=== PATIENT | male | born 1965 | race Caucasian/White ===

== ENCOUNTER 2018-05-06 06:47 | Day surgery (SDC) | payer BC ==
[2018-05-06] MEDS ORDERED: Lactated Ringers 1,000 ML IV SCH (07:15)
[2018-05-06] MEDS ORDERED: Propofol 200 MG/20 ML SDV ONE (07:21)
[2018-05-06] MEDS ORDERED: Midazolam 1 MG/ML 2 ML SDV ONE (07:21)
[2018-05-06] MEDS ORDERED: fentaNYL 100 MCG/2 ML SDV ONE (07:21)
[2018-05-06] MEDS ORDERED: Bupivacaine 0.5% 50 ML MDV ONE (07:35)
[2018-05-06] MEDS ORDERED: Clindamycin Phosphate 900 MG in Sodium Chloride 0.9% 100 ML IV ONE (08:30)
[2018-05-06] MEDS ORDERED: Ketorolac 60 MG/2 ML SDV ONE (08:32)
--- NOTE | 2018-05-06 09:40 | OR ---
DATE OF PROCEDURE: 05/06/2018 PREOPERATIVE DIAGNOSIS: Moderate carpal tunnel, right wrist. POSTOPERATIVE DIAGNOSIS: Moderate carpal tunnel, right wrist. PROCEDURE PERFORMED: Release of right transverse carpal ligament. BLOOD LOSS: Minimum. COMPLICATIONS: No complication. 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 He did well afterwards. He did develop some tingling and numbness sensation at the territory in the median nerve, which got worse with time and quite bothersome even with the brace and anti-inflammatories. 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 Since he had an EMG, which showed moderate carpal tunnel on the right side and had failed conservative treatment, it was decided to proceed with surgery. I discussed with the patient the possible risks, benefits, alternatives, and complications of surgery. The nature of the surgery was explained, all questions were answered, and I had informed consent. DESCRIPTION OF PROCEDURE: The patient was taken to the OR. I did my markings on the right wrist. He did receive antibiotics preoperatively. The WHEEL MOLDER proceeded with slight IV sedation. The patient was put on his back. A tourniquet was applied at the right upper extremity in proximity. Sterile prep and dressing were done in the usual manner on the right wrist. Time-out was taken to identify the correct surgical site and to make sure all instrumentation were present in the room. I did a local block of Marcaine 0.25% to subcutaneous tissue and down to the transverse carpal ligament of his right wrist. The arm was elevated and tourniquet was raised to 250 mmHg. An incision was done with the scalpel starting at the wrist crease and going ulnar to the thenar muscle belly about 3 cm. Dissection was carried down to the subcutaneous tissue down to the transverse carpal ligament. A slight opening was done proximally with Paolo scissors, making sure not to violate the deep structures. A groove adapter was passed underneath the transverse carpal ligament and a gradual release was done with the scalpel. The ligament was quite thick and very slight inflammation only of the nerve, which was intact. Once the release was done, the OR site was washed with saline. The skin was closed with nylon 3-0 simple sutures. A compressing dressing was applied. Tourniquet was released. Blood loss was minimal. There was no complication. The patient tolerated well the operation. He was sent to the recovery room in a good condition. Rohit Batres MD /[id number]
== END 2018-05-06 10:05 | disposition home or self-care (01) ==
LOC: JP.SDS 06:47
PROVIDERS: ATTEND Orthopaedic Surgery
DX: G56.01 Carpal tunnel syndrome, right upper limb (principal); D58.0 Hereditary spherocytosis; Q60.0 Renal agenesis, unilateral; M10.9 Gout, unspecified; Z90.81 Acquired absence of spleen; Z79.899 Other long term (current) drug therapy; Z88.0 Allergy status to penicillin
CPT/HCPCS: 64721; J1885; J2250; J2704; J3010; J3490; J7120

== ENCOUNTER 2019-10-08 21:46 | Emergency (ER) | payer BC ==
--- NOTE | 2019-10-08 22:37 | EDM.PDOCBH ---
ED HPI GENERAL MEDICAL PROBLEM - General Chief Complaint: Behavioral/Psych Stated Complaint: SUCIDIAL IDEATION Time Seen by Provider: 10/08/19 22:29 Source of Information: Reports: Patient, RN Notes Reviewed History Limitations: Reports: No Limitations - History of Present Illness INITIAL COMMENTS - FREE TEXT/NARRATIVE: 54-year-old gentleman presents emergency department a complaint of suicidal ideation he does admit to being depressed he states he does have a plan he believes he would hang himself. 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 " Musculoskeletal History: Reports: Gout Psychiatric History: Reports: Depression Hematologic History: Reports: Anemia, Other (See Below) Other Hematologic History: spherocytosis - blood disorder - Infectious Disease History Infectious Disease History: Reports: Chicken Pox - Past Surgical History GI Surgical History: Reports: Cholecystectomy, Other (See Below) Other GI Surgeries/Procedures: spleenectomy Musculoskeletal Surgical History: Reports: Carpal Tunnel, Other (See Below) Other Musculoskeletal Surgeries/Procedures:: right wrist surgery for gout Social & Family History - Tobacco Use Smoking Status *Q: Never Smoker - Caffeine Use Caffeine Use: Reports: Coffee, Soda - Recreational Drug Use Recreational Drug Use: No ED ROS GENERAL - Review of Systems Review Of Systems: See Below Constitutional: Reports: No Symptoms HEENT: Reports: No Symptoms Respiratory: Reports: No Symptoms Cardiovascular: Reports: No Symptoms GI/Abdominal: Reports: No Symptoms Neurological: Reports: No Symptoms Psychiatric: Reports: Depression, Suicidal Ideation. Denies: Hallucinations, Homicidal Ideation ED EXAM, BEHAVIORAL HEALTH - Physical Exam Exam: See Below Exam Limited By: No Limitations General Appearance: Alert, WD/WN, No Apparent Distress Respiratory/Chest: No Respiratory Distress, Lungs Clear, Normal Breath Sounds, No Accessory Muscle Use, Chest Non-Tender Cardiovascular: Regular Rate, Rhythm, No Murmur GI/Abdominal: Soft, Non-Tender Psychiatric: Alert, Normal Affect, Normal Mood, Suicidal Thoughts. No: Poor Eye Contact, Auditory Hallucinations, Visual Hallucinations, Grandiose Thoughts , Pressured Speech, Paranoid Thoughts, Threatening Behavior COURSE, BEHAVIORAL HEALTH COMP - Course Vital Signs: Last Vital Signs Temp 97.8 F 10/08/19 22:28 Pulse 114 H 10/08/19 22:28 Resp 14 10/08/19 22:28 BP 132/96 H 10/08/19 22:28 Pulse Ox 96 10/08/19 22:28 Orders, Labs, Meds: Active Orders 24 hr Category Date Time Status Suicide Precautions [OM.PC] Routine Oth 10/08/19 22:40 Ordered Laboratory Tests 10/08/19 10/08/19 10/08/19 Range/Units 22:44 22:44 22:44 WBC 15.5 H (4.5-11.0) K/uL RBC 5.45 (4.30-5.90) M/uL Hgb 17.1 H (12.0-15.0) g/dL Hct 50.4 (40.0-54.0) % MCV 93 (80-98) fL MCH 31 (27-31) pg MCHC 34 (32-36) % Plt Count 399 (150-400) K/uL Neut % (Auto) 79 H (36-66) % Lymph % (Auto) 8 L (24-44) % [place] % (Auto) 12 H (2-6) % Eos % (Auto) 0 L (2-4) % Baso % (Auto) 0 (0-1) % Sodium 143 (140-148) mmol/L Potassium 3.8 (3.6-5.2) mmol/L Chloride 103 (100-108) mmol/L Carbon Dioxide 29 (21-32) mmol/L Anion Gap 10.8 (5.0-14.0) mmol/L BUN 16 (7-18) mg/dL Creatinine 1.2 (0.8-1.3) mg/dL Est Cr Clr Drug Dosing 69.55 mL/min Estimated GFR (MDRD) > 60 (>60) Glucose 96 (74-106) mg/dL Calcium 8.9 (8.5-10.1) mg/dL Total Bilirubin 0.9 (0.2-1.0) mg/dL AST 17 (15-37) U/L ALT 27 (12-78) U/L Alkaline Phosphatase 139 H (46-116) U/L Total Protein 8.1 (6.4-8.2) g/dL Albumin 4.2 (3.4-5.0) g/dL Globulin 3.9 H (2.3-3.5) g/dL Albumin/Globulin Ratio 1.1 L (1.2-2.2) TSH, Ultra Sensitive (0.358-3.740) uIU/mL Urine Opiates Screen (NEGATIVE) Ur Oxycodone Screen (NEGATIVE) Urine Methadone Screen (NEGATIVE) Ur Propoxyphene Screen (NEGATIVE) Ur Barbiturates Screen (NEGATIVE) Ur Tricyclics Screen (NEGATIVE) Ur Phencyclidine Scrn (NEGATIVE) Ur Amphetamine Screen (NEGATIVE) U Methamphetamines Scrn (NEGATIVE) Urine MDMA Screen (NEGATIVE) U Benzodiazepines Scrn (NEGATIVE) U Cocaine Metab Screen (NEGATIVE) U Marijuana (THC) Screen (NEGATIVE) Ethyl Alcohol < 3 mg/dL 10/08/19 10/08/19 Range/Units 22:44 23:14 WBC (4.5-11.0) K/uL RBC (4.30-5.90) M/uL Hgb (12.0-15.0) g/dL Hct (40.0-54.0) % MCV (80-98) fL MCH (27-31) pg MCHC (32-36) % Plt Count (150-400) K/uL Neut % (Auto) (36-66) % Lymph % (Auto) (24-44) % [place] % (Auto) (2-6) % Eos % (Auto) (2-4) % Baso % (Auto) (0-1) % Sodium (140-148) mmol/L Potassium (3.6-5.2) mmol/L Chloride (100-108) mmol/L Carbon Dioxide (21-32) mmol/L Anion Gap (5.0-14.0) mmol/L BUN (7-18) mg/dL Creatinine (0.8-1.3) mg/dL Est Cr Clr Drug Dosing mL/min Estimated GFR (MDRD) (>60) Glucose (74-106) mg/dL Calcium (8.5-10.1) mg/dL Total Bilirubin (0.2-1.0) mg/dL AST (15-37) U/L ALT (12-78) U/L Alkaline Phosphatase (46-116) U/L Total Protein (6.4-8.2) g/dL Albumin (3.4-5.0) g/dL Globulin (2.3-3.5) g/dL Albumin/Globulin Ratio (1.2-2.2) TSH, Ultra Sensitive 1.951 (0.358-3.740) uIU/mL Urine Opiates Screen Negative (NEGATIVE) Ur Oxycodone Screen Negative (NEGATIVE) Urine Methadone Screen Negative (NEGATIVE) Ur Propoxyphene Screen Negative (NEGATIVE) Ur Barbiturates Screen Negative (NEGATIVE) Ur Tricyclics Screen Negative (NEGATIVE) Ur Phencyclidine Scrn Negative (NEGATIVE) Ur Amphetamine Screen Negative (NEGATIVE) U Methamphetamines Scrn Negative (NEGATIVE) Urine MDMA Screen Negative (NEGATIVE) U Benzodiazepines Scrn Negative (NEGATIVE) U Cocaine Metab Screen Negative (NEGATIVE) U Marijuana (THC) Screen Negative (NEGATIVE) Ethyl Alcohol mg/dL Departure - Departure Time of Disposition: 05:16 Disposition: DC/Tfer to Psych Hosp/Unit 65 Condition: Fair Clinical Impression: Suicidal ideations - Discharge Information Referrals: Emily Pierce PA-C [Primary Care Provider] - Forms: ED Department Discharge Sepsis Event Note - Evaluation Sepsis Screening Result: No Definite Risk - Focused Exam Vital Signs: Vital Signs Temp Pulse Resp BP Pulse Ox 10/08/19 22:28 97.8 F 114 H 14 132/96 H 96 10/08/19 22:24 97.8 F 114 H 14 132/96 H 96 Date Exam was Performed: 10/09/19 Time Exam was Performed: 05:15 - My Orders Last 24 Hours: My Active Orders 10/08/19 22:40 Suicide Precautions [OM.PC] Routine - Assessment/Plan Last 24 Hours: My Active Orders 10/08/19 22:40 Suicide Precautions [OM.PC] Routine Plan: Assessment Acuity = acute Site and laterality = suicidal ideation Etiology = unknown Manifestations = none Location of injury = Home Lab values = WBC elevated 15.5 consistent with leukocytosis remainder CBC unremarkable, CMP unremarkable urine drug screen and alcohol all negative Plan He has been cooperative throughout the evening he was accepted at [facility] Dr. Miranda will be transported via psychiatric transport This note was dictated using dragon voice recognition software please call with any questions on syntax or grammar.
== END 2019-10-09 09:05 ==
LOC: JP.ED 21:46
DX: R45.851 Suicidal ideations (principal); Z88.0 Allergy status to penicillin
CPT/HCPCS: 36415; 80053; 80305-QW; 84443; 85025; 99285; G0480

== ENCOUNTER 2020-06-30 17:50 | Emergency (ER) | payer BC ==
[2020-06-30] MEDS ORDERED: Acetaminophen 325 MG Tab PO PRN (20:46)
--- NOTE | 2020-06-30 20:48 | EDM.PDOC ---
ED HPI GENERAL MEDICAL PROBLEM - General Chief Complaint: Respiratory Problem Stated Complaint: COVID SYMPTOMS Time Seen by Provider: 06/30/20 20:32 Source of Information: Reports: Patient, RN Notes Reviewed History Limitations: Reports: No Limitations - History of Present Illness INITIAL COMMENTS - FREE TEXT/NARRATIVE: 54-year-old gentleman presents emergency department a complaint of 3 days of fever shortness of breath and increasing body aches. He was evaluated in the clinic today Covid test was done however he was not hypoxic and it was a send out test. He presents emergency department today as he is progressively getting worse. 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" Musculoskeletal History: Reports: Gout Psychiatric History: Reports: Depression, Psych Hospitalization(s), Suicide Attempt, Suicidal Ideation Hematologic History: Reports: Anemia, Other (See Below) Other Hematologic History: spherocytosis - blood disorder Immunologic History: Reports: Immunosuppression, Other (See Below) 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 - Infectious Disease History Infectious Disease History: Reports: Chicken Pox, Mononucleosis - Past Surgical History GI Surgical History: Reports: Cholecystectomy, Colonoscopy, Other (See Below) Other GI Surgeries/Procedures: spleenectomy Musculoskeletal Surgical History: Reports: Carpal Tunnel, Other (See Below) Other Musculoskeletal Surgeries/Procedures:: right wrist surgery for gout Social & Family History - Tobacco Use Tobacco Use Status *Q: Never Tobacco User - Caffeine Use Caffeine Use: Reports: Coffee - Recreational Drug Use Recreational Drug Use: No ED ROS GENERAL - Review of Systems Review Of Systems: See Below Constitutional: Reports: Fever, Chills, Weakness HEENT: Reports: No Symptoms Respiratory: Reports: Shortness of Breath. Denies: Wheezing, Cough, Sputum Cardiovascular: Reports: Dyspnea on Exertion GI/Abdominal: Reports: No Symptoms : Reports: No Symptoms Musculoskeletal: Reports: Muscle Pain ED EXAM, GENERAL - Physical Exam Exam: See Below Exam Limited By: No Limitations General Appearance: Alert, WD/WN, No Apparent Distress Respiratory/Chest: No Respiratory Distress, Lungs Clear, Normal Breath Sounds, No Accessory Muscle Use, Chest Non-Tender Cardiovascular: Regular Rate, Rhythm, No Murmur GI/Abdominal: Soft, Non-Tender Extremities: No Pedal Edema Course - Vital Signs Last Recorded V/S: Last Vital Signs Temp 99.7 F 06/30/20 23:18 Pulse 85 06/30/20 23:18 Resp 20 06/30/20 23:18 BP 122/84 06/30/20 20:16 Pulse Ox 96 06/30/20 23:18 - Orders/Labs/Meds Orders: Active Orders 24 hr Category Date Time Status Peripheral IV Care [RC] . DIRECTED Care 06/30/20 22:52 Active Chest 1V Frontal [CR] Stat Exams 06/30/20 20:46 Taken Acetaminophen [TylenoL] Med 06/30/20 20:46 Active 650 mg PO Q4H PRN Sodium Chloride 0.9% [Saline Flush] Med 06/30/20 22:52 Active 10 ml FLUSH ASDIRECTED PRN Isolation [COMM] Routine Oth 06/30/20 20:46 Ordered Isolation [COMM] Stat Oth 06/30/20 20:46 Ordered Isolation [COMM] Stat Oth 06/30/20 22:47 Ordered Peripheral IV Insertion Adult [OM.PC] Urgent Oth 06/30/20 22:52 Ordered Medication Orders Acetaminophen (Tylenol) 650 mg PO Q4H PRN PRN Reason: Fever Greater Than 101 Last Admin: 06/30/20 21:34 Dose: 650 mg Documented by: GAURI Sodium Chloride (Saline Flush) 10 ml FLUSH ASDIRECTED PRN PRN Reason: Keep Vein Open Labs: Laboratory Tests 06/30/20 06/30/20 06/30/20 Range/Units 21:04 21:04 21:04 WBC 14.1 H (4.5-11.0) K/uL RBC 5.48 (4.30-5.90) M/uL Hgb 17.4 H (12.0-15.0) g/dL Hct 50.2 (40.0-54.0) % MCV 92 (80-98) fL MCH 32 H (27-31) pg MCHC 35 (32-36) % Plt Count 343 (150-400) K/uL Neut % (Auto) 73 H (36-66) % Lymph % (Auto) 6 L (24-44) % Becker % (Auto) 21 H (2-6) % Eos % (Auto) 0 L (2-4) % Baso % (Auto) 0 (0-1) % D-Dimer, Quantitative 206 (0.0-400.0) ng/mL Puncture Site ABG pH (7.350-7.450) ABG pCO2 (35.0-42.0) mmHg ABG pO2 (75.0-100.0) mmHg ABG HCO3 (22.0-26.0) mmol/L ABG Total CO2 (23.0-27.0) mmol/L ABG O2 Saturation (95.0-98.0) % ABG O2 Content (15.0-23.0) %vol ABG Base Excess mm/L ABG Hemoglobin (13.5-18.0) g/dL ABG Oxyhemoglobin % ABG Carboxyhemoglobin (0.0-1.6) % ABG Methemoglobin % Nitesh Test O2 Delivery Device Sodium (140-148) mmol/L Potassium (3.6-5.2) mmol/L Chloride (100-108) mmol/L Carbon Dioxide (21-32) mmol/L Anion Gap (5.0-14.0) mmol/L BUN (7-18) mg/dL Creatinine (0.8-1.3) mg/dL Est Cr Clr Drug Dosing mL/min Estimated GFR (MDRD) (>60) Glucose (74-106) mg/dL Lactic Acid (0.4-2.0) mmol/L Calcium (8.5-10.1) mg/dL Ferritin 928 H (8-388) ng/ml Total Bilirubin (0.2-1.0) mg/dL Direct Bilirubin (0.0-0.2) mg/dL Indirect Bilirubin AST (15-37) U/L ALT (12-78) U/L Alkaline Phosphatase (46-116) U/L Lactate Dehydrogenase (85-227) U/L Troponin I (0.000-0.056) ng/mL C-Reactive Protein (0.0-0.3) mg/dL Total Protein (6.4-8.2) g/dL Albumin (3.4-5.0) g/dL Globulin (2.3-3.5) g/dL Albumin/Globulin Ratio (1.2-2.2) Procalcitonin ng/mL SARS CoV-2 RNA Rapid COREY 06/30/20 06/30/20 06/30/20 Range/Units 21:04 21:04 21:04 WBC (4.5-11.0) K/uL RBC (4.30-5.90) M/uL Hgb (12.0-15.0) g/dL Hct (40.0-54.0) % MCV (80-98) fL MCH (27-31) pg MCHC (32-36) % Plt Count (150-400) K/uL Neut % (Auto) (36-66) % Lymph % (Auto) (24-44) % Becker % (Auto) (2-6) % Eos % (Auto) (2-4) % Baso % (Auto) (0-1) % D-Dimer, Quantitative (0.0-400.0) ng/mL Puncture Site ABG pH (7.350-7.450) ABG pCO2 (35.0-42.0) mmHg ABG pO2 (75.0-100.0) mmHg ABG HCO3 (22.0-26.0) mmol/L ABG Total CO2 (23.0-27.0) mmol/L ABG O2 Saturation (95.0-98.0) % ABG O2 Content (15.0-23.0) %vol ABG Base Excess mm/L ABG Hemoglobin (13.5-18.0) g/dL ABG Oxyhemoglobin % ABG Carboxyhemoglobin (0.0-1.6) % ABG Methemoglobin % Nitesh Test O2 Delivery Device Sodium 138 L (140-148) mmol/L Potassium 3.6 (3.6-5.2) mmol/L Chloride 99 L (100-108) mmol/L Carbon Dioxide 27 (21-32) mmol/L Anion Gap 15.6 H (5.0-14.0) mmol/L BUN 19 H (7-18) mg/dL Creatinine 1.4 H (0.8-1.3) mg/dL Est Cr Clr Drug Dosing 57.68 mL/min Estimated GFR (MDRD) 53 L (>60) Glucose 84 (74-106) mg/dL Lactic Acid 1.3 (0.4-2.0) mmol/L Calcium 9.0 (8.5-10.1) mg/dL Ferritin (8-388) ng/ml Total Bilirubin 0.9 (0.2-1.0) mg/dL Direct Bilirubin 0.26 H (0.0-0.2) mg/dL Indirect Bilirubin 0.64 AST 24 (15-37) U/L ALT 31 (12-78) U/L Alkaline Phosphatase 107 (46-116) U/L Lactate Dehydrogenase 164 (85-227) U/L Troponin I (0.000-0.056) ng/mL C-Reactive Protein 0.94 H (0.0-0.3) mg/dL Total Protein 7.3 (6.4-8.2) g/dL Albumin 3.7 (3.4-5.0) g/dL Globulin 3.6 H (2.3-3.5) g/dL Albumin/Globulin Ratio 1.0 L (1.2-2.2) Procalcitonin 0.23 ng/mL SARS CoV-2 RNA Rapid COREY 06/30/20 06/30/20 06/30/20 Range/Units 21:33 21:54 22:32 WBC (4.5-11.0) K/uL RBC (4.30-5.90) M/uL Hgb (12.0-15.0) g/dL Hct (40.0-54.0) % MCV (80-98) fL MCH (27-31) pg MCHC (32-36) % Plt Count (150-400) K/uL Neut % (Auto) (36-66) % Lymph % (Auto) (24-44) % Becker % (Auto) (2-6) % Eos % (Auto) (2-4) % Baso % (Auto) (0-1) % D-Dimer, Quantitative (0.0-400.0) ng/mL Puncture Site Rt.radial ABG pH 7.458 H (7.350-7.450) ABG pCO2 34.5 L (35.0-42.0) mmHg ABG pO2 62.3 L (75.0-100.0) mmHg ABG HCO3 24.1 (22.0-26.0) mmol/L ABG Total CO2 20.0 L (23.0-27.0) mmol/L ABG O2 Saturation 93.7 L (95.0-98.0) % ABG O2 Content 22.1 (15.0-23.0) %vol ABG Base Excess 1.3 mm/L ABG Hemoglobin 17.3 (13.5-18.0) g/dL ABG Oxyhemoglobin 90.9 % ABG Carboxyhemoglobin 1.7 H (0.0-1.6) % ABG Methemoglobin 1.3 % Nitesh Test Passed O2 Delivery Device Room air Sodium (140-148) mmol/L Potassium (3.6-5.2) mmol/L Chloride (100-108) mmol/L Carbon Dioxide (21-32) mmol/L Anion Gap (5.0-14.0) mmol/L BUN (7-18) mg/dL Creatinine (0.8-1.3) mg/dL Est Cr Clr Drug Dosing mL/min Estimated GFR (MDRD) (>60) Glucose (74-106) mg/dL Lactic Acid (0.4-2.0) mmol/L Calcium (8.5-10.1) mg/dL Ferritin (8-388) ng/ml Total Bilirubin (0.2-1.0) mg/dL Direct Bilirubin (0.0-0.2) mg/dL Indirect Bilirubin AST (15-37) U/L ALT (12-78) U/L Alkaline Phosphatase (46-116) U/L Lactate Dehydrogenase (85-227) U/L Troponin I < 0.017 (0.000-0.056) ng/mL C-Reactive Protein (0.0-0.3) mg/dL Total Protein (6.4-8.2) g/dL Albumin (3.4-5.0) g/dL Globulin (2.3-3.5) g/dL Albumin/Globulin Ratio (1.2-2.2) Procalcitonin ng/mL SARS CoV-2 RNA Rapid COREY Positive H Meds: Medications Generic Name Dose Route Start Last Admin Trade Name Freq PRN Reason Stop Dose Admin Acetaminophen 650 mg 06/30/20 20:46 06/30/20 21:34 Tylenol PO 650 mg Q4H PRN Administration Fever Greater Than 101 Sodium Chloride 10 ml 06/30/20 22:52 Saline Flush FLUSH ASDIRECTED PRN Keep Vein Open Discontinued Medications Generic Name Dose Route Start Last Admin Trade Name Frederick PRN Reason Stop Dose Admin Dexamethasone 6 mg 06/30/20 22:47 Dexamethasone IVPUSH 06/30/20 22:48 NOW STA Dexamethasone Confirm 06/30/20 23:38 Dexamethasone Administered 06/30/20 23:39 Dose 4 mg .ROUTE .STK-MED ONE Remdesivir 200 mg/ Sodium 250 mls @ 250 mls/hr 06/30/20 22:47 Chloride IV 06/30/20 22:48 ONETIME ONE Departure - Departure Time of Disposition: 23:49 Disposition: DC/Tfer to Acute Hospital 02 Condition: Fair Clinical Impression: COVID-19 - Discharge Information Referrals: PCP,None [Primary Care Provider] - Forms: ED Department Discharge Sepsis Event Note (ED) - Evaluation Sepsis Screening Result: No Definite Risk - Focused Exam Vital Signs: Vital Signs Temp Pulse Resp BP Pulse Ox 06/30/20 23:18 99.7 F 85 20 96 06/30/20 21:30 107 H 20 93 L 06/30/20 20:16 100.5 F 99 19 122/84 92 L 06/30/20 20:15 100.5 F 99 19 122/84 92 L - My Orders Last 24 Hours: My Active Orders 06/30/20 20:46 Chest 1V Frontal [CR] Stat Acetaminophen [TylenoL] 650 mg PO Q4H PRN Isolation [COMM] Routine Isolation [COMM] Stat 06/30/20 22:47 Isolation [COMM] Stat 06/30/20 22:52 Peripheral IV Care [RC] . DIRECTED Sodium Chloride 0.9% [Saline Flush] 10 ml FLUSH ASDIRECTED PRN Peripheral IV Insertion Adult [OM.PC] Urgent - Assessment/Plan Last 24 Hours: My Active Orders 06/30/20 20:46 Chest 1V Frontal [CR] Stat Acetaminophen [TylenoL] 650 mg PO Q4H PRN Isolation [COMM] Routine Isolation [COMM] Stat 06/30/20 22:47 Isolation [COMM] Stat 06/30/20 22:52 Peripheral IV Care [RC] . DIRECTED Sodium Chloride 0.9% [Saline Flush] 10 ml FLUSH ASDIRECTED PRN Peripheral IV Insertion Adult [OM.PC] Urgent Plan: Assessment Acuity = acute Site and laterality = Covid syndrome Etiology = COVID-19 Manifestations = hypoxia Location of injury = Home Lab values = WBC elevated 14.1 consistent leukocytosis pH 7.45 PCO2 34.5 bicarb 24 creatinine elevated 1.4 consistent with acute renal failure stage G3 a ferritin elevated 928 direct bili slightly elevated 0.26 LDH normal 164 troponin was negative CRP slightly elevated 0.94 procalcitonin 0.23 Covid is positive chest x-ray I did review films myself I cannot appreciate any acute process, the official read from radiology is pending influenza a and B- Plan Call discussed case with Dr. Watson emergency room physician [facility] at [id number] he kindly accepted the patient in transport will be transported via EMS ground he is maintaining his oxygen saturation on 2 L at 95% did receive a loading dose of remdesivir 200 mg and 1 dose of dexamethasone This note was dictated using V[employer] voice recognition software please call with any questions on syntax or grammar.
[2020-06-30] MEDS ORDERED: REMDESIVIR 200 MG in Sodium Chloride 0.9% 250 ML IV ONE (22:47)
[2020-06-30] MEDS ORDERED: Dexamethasone 4 MG/ML SDV IVPUSH STA (22:47)
[2020-06-30] MEDS ORDERED: Sodium Chloride 0.9% 10 ML Syringe FLUSH PRN (22:52)
[2020-06-30] MEDS ORDERED: Dexamethasone 4 MG/ML SDV ONE (23:38)
[2020-07-01] MEDS ORDERED: Ketorolac 30 MG/ML SDV IVPUSH ONE (00:18)
--- NOTE | 2020-07-01 09:27 | CR ---
CHEST: Portable 06/30/2020 at 10:26 PM CLINICAL HISTORY:Respiratory failure COMPARISON:None FINDINGS: This minimal patchy density in the lingula. This is most likely some subsegmental atelectasis. There is some generalized prominence of the interstitial markings. This may be chronic. Heart size and pulmonary vascularity are normal. There are atherosclerotic changes in the aorta. IMPRESSION: Minimal patchy density in the lingula is most likely some atelectasis or possibly scarring Mild generalized prominence of the interstitial markings. This may be chronic.
== END 2020-07-01 00:47 ==
LOC: JP.ED 17:50
DX: U07.1 COVID-19 (principal); Z88.0 Allergy status to penicillin; Z90.49 Acquired absence of other specified parts of digestive tract
CPT/HCPCS: 36415; 36600; 71045; 80048; 80076; 82728; 82803; 83605; 83615; 84145; 84484; 85025; 85379; 86140; 87635; 87804; 96365; 96375; 99285; A9270; J1100; J1885; J7050; U0002

== ENCOUNTER 2020-09-14 04:25 | Emergency (ER) | payer BC ==
[2020-09-14] MEDS ORDERED: Acetaminophen/oxyCODONE 325-5 MG Tab PO STA (05:02)
[2020-09-14] MEDS ORDERED: Ondansetron 4 MG Tab.DIS PO ONE (05:03)
--- NOTE | 2020-09-14 05:08 | EDM.PDOC ---
ED HPI GENERAL MEDICAL PROBLEM - General Chief Complaint: General Stated Complaint: COVID SYMPTOMS Time Seen by Provider: 09/14/20 04:50 Source of Information: Reports: Patient, Old Records, RN History Limitations: Reports: No Limitations - History of Present Illness INITIAL COMMENTS - FREE TEXT/NARRATIVE: 54 yo male was seen in the clinic yesterday for SOB. He had a CT PE study that was negative and did not show any definite pneumonia. He had Covid a few weeks ago and was hospitalized for 4-5 days. He has a mild cough, mild nausea and a MAHER now. He went to work [employer] and mentioned he was sick and he got sent home. On his way home he decided to come to the ER. He has not taken anything for his sx's. He lives in [place]. Had a fever earlier per his report. Had a shingles vaccination yesterday. Reports minimal light sensitivity and no neck stiffness. Has had a splenectomy. Onset: Gradual Onset Date: 09/13/20 Duration: Hour(s):, Getting Worse Location: Reports: Head, Generalized Quality: Reports: Ache Severity: Moderate Improves with: Reports: None Worsens with: Reports: Other (unsure) Context: Reports: Other (See HPI) Associated Symptoms: Reports: Cough (minimal and dry), Fever/Chills, Headaches, Malaise, Nausea/Vomiting (no vomiting), Shortness of Breath (minimal). 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 Respiratory History: Reports: SOB Genitourinary History: Reports: Other (See Below) Other Genitourinary History: 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" Musculoskeletal History: Reports: Gout Psychiatric History: Reports: Depression, Psych Hospitalization(s), Suicide Attempt, Suicidal Ideation Hematologic History: Reports: Anemia, Other (See Below) Other Hematologic History: spherocytosis - blood disorder Immunologic History: Reports: Immunosuppression, Other (See Below) 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 - Infectious Disease History Infectious Disease History: Reports: Chicken Pox, Mononucleosis, Novel Coronavirus - Past Surgical History GI Surgical History: Reports: Cholecystectomy, Colonoscopy, Other (See Below) Other GI Surgeries/Procedures: spleenectomy Musculoskeletal Surgical History: Reports: Carpal Tunnel, Other (See Below) Other Musculoskeletal Surgeries/Procedures:: right wrist surgery for gout Social & Family History - Tobacco Use Tobacco Use Status *Q: Never Tobacco User - Caffeine Use Caffeine Use: Reports: Coffee - Recreational Drug Use Recreational Drug Use: No ED ROS GENERAL - Review of Systems Review Of Systems: See Below Constitutional: Reports: Fever, Chills, Malaise HEENT: Reports: No Symptoms Respiratory: Reports: Shortness of Breath (mild), Cough (mild). Denies: Wheezing, Pleuritic Chest Pain, Sputum, Hemoptysis Cardiovascular: Reports: No Symptoms Endocrine: Reports: No Symptoms GI/Abdominal: Reports: Nausea. Denies: Diarrhea, Vomiting : Reports: No Symptoms Musculoskeletal: Reports: No Symptoms Skin: Reports: No Symptoms Neurological: Reports: Headache. Denies: Seizure, Syncope ED EXAM, GENERAL - Physical Exam Exam: See Below Exam Limited By: No Limitations General Appearance: Alert, WD/WN, No Apparent Distress Eye Exam: Bilateral Eye: Normal Inspection Ears: Normal External Exam, Normal Canal, Hearing Grossly Normal Ear Exam: Bilateral Ear: Auricle Normal, Canal Normal Nose: Normal Inspection, No Blood Throat/Mouth: Normal Inspection, Normal Lips, Normal Oropharynx, Normal Voice, No Airway Compromise Head: Atraumatic, Normocephalic Neck: Normal Inspection Respiratory/Chest: No Respiratory Distress, No Accessory Muscle Use, Rales (scattered). No: Respiratory Distress, Wheezing, Accessory Muscle Use Cardiovascular: Regular Rate, Rhythm, No Edema Extremities: Normal Inspection Neurological: Alert, Oriented, CN II-XII Intact, Normal Cognition, No Motor/Sensory Deficits Psychiatric: Normal Affect, Normal Mood Skin Exam: Warm, Dry, Intact, Normal Color, No Rash Course - Vital Signs Last Recorded V/S: Last Vital Signs Temp 37.3 C 09/14/20 04:49 Pulse 102 H 09/14/20 04:49 Resp 17 09/14/20 04:49 BP 125/92 H 09/14/20 04:49 Pulse Ox 98 09/14/20 04:49 - Orders/Labs/Meds Orders: Active Orders 24 hr Category Date Time Status CULTURE BLOOD [BC] Stat Lab 09/14/20 05:30 Received Labs: Laboratory Tests 09/14/20 09/14/20 09/14/20 Range/Units 04:59 05:00 05:00 WBC 16.8 H (4.5-11.0) K/uL RBC 5.34 (4.30-5.90) M/uL Hgb 16.8 H (12.0-15.0) g/dL Hct 49.3 (40.0-54.0) % MCV 92 (80-98) fL MCH 32 H (27-31) pg MCHC 34 (32-36) % Plt Count 305 (150-400) K/uL Sodium 142 (140-148) mmol/L Potassium 4.1 (3.6-5.2) mmol/L Chloride 102 (100-108) mmol/L Carbon Dioxide 31 (21-32) mmol/L Anion Gap 9.5 (5.0-14.0) mmol/L BUN 15 (7-18) mg/dL Creatinine 1.4 H (0.8-1.3) mg/dL Est Cr Clr Drug Dosing 57.68 mL/min Estimated GFR (MDRD) 53 L (>60) Glucose 103 (74-106) mg/dL Lactic Acid (0.4-2.0) mmol/L Calcium 9.3 (8.5-10.1) mg/dL C-Reactive Protein 0.61 H (0.0-0.3) mg/dL 09/14/20 Range/Units 05:00 WBC (4.5-11.0) K/uL RBC (4.30-5.90) M/uL Hgb (12.0-15.0) g/dL Hct (40.0-54.0) % MCV (80-98) fL MCH (27-31) pg MCHC (32-36) % Plt Count (150-400) K/uL Sodium (140-148) mmol/L Potassium (3.6-5.2) mmol/L Chloride (100-108) mmol/L Carbon Dioxide (21-32) mmol/L Anion Gap (5.0-14.0) mmol/L BUN (7-18) mg/dL Creatinine (0.8-1.3) mg/dL Est Cr Clr Drug Dosing mL/min Estimated GFR (MDRD) (>60) Glucose (74-106) mg/dL Lactic Acid 1.0 (0.4-2.0) mmol/L Calcium (8.5-10.1) mg/dL C-Reactive Protein (0.0-0.3) mg/dL Meds: Medications Discontinued Medications Generic Name Dose Route Start Last Admin Trade Name Frederick PRN Reason Stop Dose Admin Cephalexin 750 mg 09/14/20 05:44 Keflex PO 09/14/20 05:45 ONETIME ONE Ondansetron HCl 4 mg 09/14/20 05:03 09/14/20 05:16 Zofran Odt PO 09/14/20 05:04 4 mg ONETIME ONE Administration Oxycodone/Acetaminophen 1 tab 09/14/20 05:02 09/14/20 05:16 Percocet 325-5 Mg PO 09/14/20 05:03 1 tab ONETIME STA Administration Departure - Departure Time of Disposition: 06:00 Disposition: Home, Self-Care 01 Condition: Fair Clinical Impression: Elevated WBC count Qualifiers: Leukocytosis type: unspecified Qualified Code(s): D72.829 - Elevated white blood cell count, unspecified Headache Qualifiers: Headache type: unspecified Headache chronicity pattern: acute headache Intractability: not intractable Qualified Code(s): R51.9 - Headache, unspecified - Discharge Information *PRESCRIPTION DRUG MONITORING PROGRAM REVIEWED*: No *COPY OF PRESCRIPTION DRUG MONITORING REPORT IN PATIENT DAISY: No Referrals: PCP,None [Primary Care Provider] - Forms: ED Department Discharge Additional Instructions: Rest. Take cephalexin every 6 hrs until gone. Take either acetaminophen OR Percocet for headache. Use Zofran as needed for nausea control. Recheck in the clinic or Saturday. Off work for now. Drink ample fluids. Sepsis Event Note (ED) - Evaluation Sepsis Screening Result: Possible Sepsis Risk - Focused Exam Vital Signs: Vital Signs Temp Pulse Resp BP Pulse Ox 09/14/20 04:49 37.3 C 102 H 17 125/92 H 98 09/14/20 04:46 37.3 C 102 H 17 125/92 H 98 - My Orders Last 24 Hours: My Active Orders 09/14/20 05:30 CULTURE BLOOD [BC] Stat - Assessment/Plan Last 24 Hours: My Active Orders 09/14/20 05:30 CULTURE BLOOD [BC] Stat
[2020-09-14] MEDS ORDERED: Cephalexin 250 MG Cap PO ONE (05:44)
== END 2020-09-14 06:09 | disposition home or self-care (01) ==
LOC: JP.ED 04:33
DX: R51.9 Headache, unspecified (principal); D72.829 Elevated white blood cell count, unspecified; Z88.0 Allergy status to penicillin
CPT/HCPCS: 36415; 80048; 83605; 85027; 86140; 87040; 99284; A9270

== ENCOUNTER 2023-03-05 12:12 | Emergency (ER) | payer BC ==
[2023-03-05 13:08] LABS: HEMATOCRIT 46.9 % (38.4-49.7); HEMOGLOBIN 16.8 g/dL (12.9-16.9); MEAN CORPUSCULAR HEMOGLOBIN 32.4 pg (31.6-35.5); MEAN CORPUSCULAR HGB CONC 35.8 g/dL (31.6-35.5); MEAN CORPUSCULAR VOLUME 90.4 fL (81.4-99.0); PLATELET COUNT,PLT 344 K/uL (130-375); RED BLOOD CELL COUNT 5.19 M/uL (4.14-5.76); WHITE BLOOD CELL COUNT,WBC 11.1 K/uL (3.2-11.0)
[2023-03-05 13:21] LABS: EOSINOPHILS ABSOLUTE MAN 0.44 K/uL (0.00-0.40); EOSINOPHILS PERCENT MAN 4 % (2-4); LYMPHOCYTES ABSOLUTE MAN 2.44 K/uL (0.8-3.3); LYMPHOCYTES PERCENT MAN 22 % (24-44); MONOCYTES ABSOLUTE MAN 1.67 K/uL (0.20-0.90); MONOCYTES PERCENT MAN 15 % (2-6); NEUTROPHILS ABSOLUTE MAN 6.55 K/uL (1.0-7.6); SEG NEUTROPHILS PERCENT MAN 59 % (36-66)
[2023-03-05 13:29] LABS: CALCIUM 8.9 mg/dL (8.5-10.1); CREATININE 1.2 mg/dL (0.8-1.3); EST CRCL DRUG DOSING (CG) 67.1 mL/min; TROPONIN I HIGH SENSITIVITY 4.2 pg/mL (<=60.3)
[2023-03-05 13:51] LABS: LYME AB IgG Negative (Negative); LYME AB IgM Negative (Negative)
[2023-03-05 14:13] LABS: APPEARANCE,URINE CLEAR (CLEAR); BILIRUBIN,URINE NEGATIVE (NEGATIVE); COLOR,URINE YELLOW (YELLOW); GLUCOSE,URINE NEGATIVE (NEGATIVE); KETONES,URINE NEGATIVE (NEGATIVE); LEUKOCYTE ESTERASE,URINE NEGATIVE (NEGATIVE); NITRITE,URINE NEGATIVE (NEGATIVE); OCCULT BLOOD,URINE NEGATIVE (NEGATIVE); PROTEIN,URINE NEGATIVE (NEGATIVE); UROBILINOGEN,URINE 0.2 EU/dL (0.2-1.0)
[2023-03-05 14:23] LABS: AMORPHOUS SEDIMENT,URINE NOT SEEN; BACTERIA,URINE RARE; EPITHELIAL CELLS,URINE RARE; MUCUS,URINE RARE; RBC,URINE 0-5 (0-5); WBC,URINE 0-5 (0-5)
== END 2023-03-05 14:41 | disposition home or self-care (01) ==
LOC: JP.ED 12:12
DX: E86.0 Dehydration (principal); D72.829 Elevated white blood cell count, unspecified; M10.9 Gout, unspecified; Z88.0 Allergy status to penicillin; Z86.16 Personal history of COVID-19
CPT/HCPCS: 36415; 80048; 81001; 84484; 85025; 85651; 86140; 86618; 93005; 93010; 99283; 99285